=== PATIENT | male | born 1990 | race Caucasian/White ===

== ENCOUNTER 2017-01-18 14:36 | Emergency (ER) | payer OTHER ==
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
[2017-01-18 18:15] VITALS: BP 131/59
== END 2017-01-18 17:11 | disposition home or self-care (01) ==
LOC: MW.ED 14:36
DX: T14.8 Other injury of unspecified body region (principal); E10.9 Type 1 diabetes mellitus without complications; F17.210 Nicotine dependence, cigarettes, uncomplicated; V89.2XXA Person injured in unspecified motor-vehicle accident, traffic, initial encounter
CPT/HCPCS: 70450; 70450-26; 72125; 72125-26; 72128; 72128-26; 99284; 99284-25